=== PATIENT | female | born 1955 | race Caucasian/White ===

== ENCOUNTER 2017-05-09 10:34 | Emergency (ER) | payer BC ==
--- OUTSIDE RECORDS SUMMARY | 2017-05-09 11:45 | XMS REPORT ---
:1955 External Reference #:[id number] Author Organization [facility] Address [address], [address] [place] [address] Phone [phone] Care Team Providers Name Role Phone Juliana Jurado MD Care Team Information Form Coverer Unavailable Juliana Jurado MD Primary Care Physician Unavailable Payers Type Date Identification Numbers Payment Provider Subscriber Commercial Policy Number: [id number] [employer] HUMB[employer] Fay Lopezjackelyn PayID: [id number] [address] [address] [place] [address] Medigap Part B Effective: 2009 Policy Number: Kevin Nur [id number] Expires: 2014 PayID: [id number] [address] [address] [place] [address] Medigap Part B Effective: 1997 Policy Number: Kevin Nur [id number] Expires: 2009 Group Number: [id number] [address] [address] PayID: [id number] [place] [address] Problems Date Description Provider Status Onset: 10/27/2010 Single major depressive episode Loren Freedman M.D. Active Onset: 10/27/2010 Palpitations Loren Freedman M.D. Active Onset: 10/27/2010 Benign essential hypertension Loren Freedman M.D. Active Onset: 10/27/2010 Hyperlipidemia Loren Freedman M.D. 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 Onset: 12/28/2016 Spasm Juliana Jurado MD Active Family History Date Family Member(s) Problem(s) Comments Father due to Lung Cancer () Mother due to Bone Cancer () First Daughter Fibrocystic breast disease Social History Type Date Description Comments Lives With Lives With Son Pets None 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 Working [employer] Hobbies [employer] Cigarette Use Never Smoked Cigarettes ETOH Use Consumes 1 glass of wine per day Recreational Drug Use Denies Drug Use Smoking Patient has never smoked Daily Caffeine Patient consumes minimal amounts of caffeine Allergies, Adverse Reactions, Alerts Date Description Reaction Status Severity Comments 05/07/2009 NKDA active Medications Medication Date Status Form Strength Qnty SIG Indications Ordering Provider Potassium 12/28/ Active Tablets ER 10Meq 120ta 4 tab by Juliana Ortiz Theresa 2016 bs mouth MARIETTA Jurado every morning Furosemide 05/28/ Active Tablets 20mg 90tab 1 by mouth I10 2016 s in in the adonay Jurado MD Omeprazole 06/19/ Active Capsules DR 40mg 90cap 1 by mouth 2015 s every day MD Adrien Vitamin B 06/19/ Active Tablets 1 by mouth Catalina Soni 2015 every day Regis Calvillo Escitalopram 10/27/ Active Tablets 20mg 90tab 1 by mouth F41.9 Juliana Oxalate 2010 s every day MD Adrien Tribenzor / Active Tablets 40-10-25m 90tab 1 by mouth I10 0000 g s every day amador Jurado 1 Metoprolol / Active Tablets ER 100mg 90tab take 1 I10 Juliana Succinate ER 0000 24HR s tablets by german Jurado once daily mdd 1 Simvastatin / Active Tablets 40mg 90tab 1 by mouth E78.5 0000 s every Adrien, night amador UPTON 1 Terazosin HCL 03/05/ Hx Capsules 5mg 90cap 1 by mouth 2017 - s every day Adrien 04/19/ Didn't 2017 Call In Yet Fluticasone 02/02/ Hx Suspension 50mcg/Act 9.900 1 spray to J06.9 Catalina Propionate 2017 - ml each mag Calvillo M.D. 02/12/ every day 2016 Mucinex 02/02/ Hx Tablets ER 600mg 30tab 1 tab by Park9 Catalina 2016 - 12HR s german Calvillo M.D. 02/12/ twice a 2016 day Cefdinir 02/02/ Hx Capsules 300mg 20cap 1 tab by Catalina 2017 - s german Calvillo M.D. 02/14/ twice a 2016 day Terazosin HCL 01/20/ Hx Capsules 2mg 30cap 1 Tab At Juliana 2017 - s Bedtime Adiren 03/05/ 2017 Potassium 06/21/ Hx Tablets ER 20Meq 60tab 1 tab by Juliana Cardenas 2016 - s mouth Adrien, ER 12/28/ 2x/day 2016 Amoxicillin/Cl 03/27/ Hx Tablets 875-125mg 14tab take 1 J01.10 Catalina avulanate 2016 - s tablet by Regis Calvillo Potassium 04/03/ mouth 2016 every 12 hours for 7 days for sinus infection Buspirone HCL 05/19/ Hx Tablets 5mg 90tab take 1-2 F41.9 Loren 2015 - s tablet 2-3 Kasia, 11/26/ times M.D. 2015 daily for anxiety as needed Naprosyn 10/01/ Hx Tablets 500mg 180ta one twice M25.559 Loren 2014 - bs a day with Kasia 12/28/ food Only M.D. 2016 as needed for pain:3-4X/ Mo Omeprazole 01/23/ Hx Capsules DR 40mg 90cap 1 by mouth Loren 2013 - s bid Kasia 06/19/ M.D. 2016 Naproxen Kit 10/23/ Hx Tablets 500mg 180ta 1 by mouth Kasia 2013 - bs twice a Loren, 10/01/ day as 2014 needed with food Alendronate / Hx 70mg Unknown Sodium - 2014 Amlodipine / Hx 5-10mg Unknown Besy-Benazepri 0000 - l HCL 2014 Lexapro / Hx 10mg Unknown - 2014 Thiamine HCL 00/00/ Hx Tablets 100mg 1 PO qd Freedman, 0000 - Loren, 2015 Vitamin B-12 0000/ Hx Tablets 100mcg 90tab 1 po qd Unknown 0000 - s 2016 Fexofenadine 00/00/ Hx Tablets 180mg 1 po qd Freedman, HCL 0000 - Loren, 2014 Omeprazole / Hx Capsules DR 20mg 90cap 1 by mouth Juliana 0000 - s every at Adrien, 12/28/ bedtime 2016 Immunizations CPT Code Status Date Vaccine Lot # [id number] Given 11/27/2015 Influenza Vaccine (Fluzone) Age 3 And Older [id number] Given 11/27/2014 Influenza Vaccine (Fluzone) Age 3 And Older [id number] Given 11/14/2013 Tdap injection 47657 Given 11/14/2013 Pneumococcal Conjugate Vaccine 13 Valent For Intramuscular Use 77183 Given 11/14/2013 flu vaccination 18274 Given 11/02/2012 flu vaccination 34044 Given 06/05/2012 Zoster Vaccine Live Injection 07421 Given 11/02/2011 flu vaccination 39351 Given 10/27/2010 flu vaccination 86637 Given 11/04/2009 flu vaccination 24871 Given 02/18/2009 H1N1 Immuniation Adminstration 55008 Given 12/25/2008 flu vaccination 77377 Given 01/06/2005 flu vaccination 07859 Given 09/19/2003 Tetnus Injection 13066 Given 12/25/2002 flu vaccination 61186 Given 01/02/2002 flu vaccination 32349 Given 01/13/2001 flu vaccination 79938 Given 12/18/1999 Influenza Virus Whole 46144 Given 12/28/1995 Influenza Virus Vaccine 62578 Given 11/19/1994 Influenza Virus Vaccine 53088 Given 12/09/1992 Influenza Virus Vaccine 91924 Given 12/01/1991 Influenza Virus Vaccine Vital Signs Date Vital Result Comment 04/19/2017 BP Systolic 129 mmHg BP Diastolic 74 mmHg BP Systolic Sitting Left Arm 124 mmHg BP Diastolic Sitting Left Arm 82 mmHg Body Temperature 97.2 F Heart Rate 67 /min Weight 167.00 lb O2 % BldC Oximetry 96 % 03/05/2017 BP Systolic 152 mmHg BP Diastolic 102 mmHg Heart Rate 78 /min Weight 161.00 lb O2 % BldC Oximetry 97 % 02/02/2017 BP Systolic 132 mmHg BP Diastolic 88 mmHg Body Temperature 97.6 F Heart Rate 69 /min Height 63 inches 5'3" Weight 163.38 lb BMI (Body Mass Index) 28.9 kg/m2 BSA (Body Surface Area) 1.77 m2 [place] body weight in kilograms 52 O2 % BldC Oximetry 96 % 01/20/2017 BP Systolic Sitting Right Arm 160 mmHg BP Diastolic Sitting Right Arm 90 mmHg Heart Rate 67 /min Height 63 inches 5'3" Weight 163.00 lb BMI (Body Mass Index) 28.9 kg/m2 BSA (Body Surface Area) 1.77 m2 [place] body weight in kilograms 52 O2 % BldC Oximetry 96 % 12/28/2016 BP Systolic Sitting Right Arm 162 mmHg BP Diastolic Sitting Right Arm 100 mmHg Heart Rate 67 /min Height 63 inches 5'3" Weight 164.00 lb BMI (Body Mass Index) 29.0 kg/m2 BSA (Body Surface Area) 1.78 m2 [place] body weight in kilograms 52 06/29/2016 BP Systolic 138 mmHg BP Diastolic 80 mmHg BP Systolic Sitting Left Arm 136 mmHg BP Diastolic Sitting Left Arm 80 mmHg BP Systolic Sitting Resting Right Arm 136 mmHg BP Diastolic Sitting Resting Right Arm 79 mmHg Body Temperature 97.4 F Heart Rate 64 /min Height 63 inches 5'3" Weight 167.00 lb BMI (Body Mass Index) 29.6 kg/m2 BSA (Body Surface Area) 1.79 m2 [place] body weight in kilograms 52 05/28/2016 BP Systolic 155 mmHg BP Diastolic 81 mmHg BP Systolic Sitting Left Arm 142 mmHg BP Diastolic Sitting Left Arm 90 mmHg Body Temperature 97.2 F Heart Rate 64 /min Respiratory Rate 16 /min Height 63 inches 5'3" Weight 171.00 lb BMI (Body Mass Index) 30.3 kg/m2 BSA (Body Surface Area) 1.81 m2 [place] body weight in kilograms 52 03/27/2016 BP Systolic Sitting Left Arm 132 mmHg BP Diastolic Sitting Left Arm 84 mmHg Body Temperature 97.1 F Heart Rate 68 /min Respiratory Rate 20 /min Height 66 inches 5'6" Weight 169.25 lb BMI (Body Mass Index) 27.3 kg/m2 BSA (Body Surface Area) 1.86 m2 11/27/2015 BP Systolic 137 mmHg BP Diastolic 88 mmHg BP Systolic Sitting Left Arm 142 mmHg BP Diastolic Sitting Left Arm 80 mmHg Heart Rate 64 /min Respiratory Rate 16 /min Height 66 inches 5'6" Weight 173.00 lb BMI (Body Mass Index) 27.9 kg/m2 BSA (Body Surface Area) 1.88 m2 [place] body weight in kilograms 59 06/20/2015 BP Systolic 122 mmHg BP Diastolic 84 mmHg Body Temperature 97.1 F Heart Rate 59 /min Respiratory Rate 16 /min Height 65 inches 5'5" Weight 171.00 lb BMI (Body Mass Index) 28.5 kg/m2 BSA (Body Surface Area) 1.85 m2 O2 % BldC Oximetry 98 % 05/20/2015 BP Systolic Sitting Left Arm 128 mmHg BP Diastolic Sitting Left Arm 76 mmHg Heart Rate 60 /min Respiratory Rate 19 /min Height 65 inches 5'5" Weight 172.00 lb BMI (Body Mass Index) 28.6 kg/m2 BSA (Body Surface Area) 1.86 m2 11/27/2014 BP Systolic Sitting Left Arm 118 mmHg BP Diastolic Sitting Left Arm 66 mmHg Heart Rate 62 /min Respiratory Rate 19 /min Height 65 inches 5'5" Weight 171.00 lb BMI (Body Mass Index) 28.5 kg/m2 BSA (Body Surface Area) 1.85 m2 Last Menstrual Period [id number] Menopause 10/01/2014 BP Systolic Sitting Left Arm 122 mmHg BP Diastolic Sitting Left Arm 70 mmHg Body Temperature 98.6 F Heart Rate 59 /min Respiratory Rate 19 /min Height 65 inches 5'5" Weight 171.00 lb BMI (Body Mass Index) 28.5 kg/m2 BSA (Body Surface Area) 1.85 m2 05/28/2014 BP Systolic Sitting Left Arm 124 mmHg BP Diastolic Sitting Left Arm 72 mmHg Heart Rate 68 /min Respiratory Rate 18 /min Height 66 inches 5'6" Weight 170.00 lb BMI (Body Mass Index) 27.4 kg/m2 BSA (Body Surface Area) 1.87 m2 04/10/2014 BP Systolic 118 mmHg BP Diastolic 76 mmHg Body Temperature 97.9 F Heart Rate 72 /min Respiratory Rate 18 /min Height 66 inches 5'6" Weight 176.00 lb 01/23/2014 BP Systolic 122 mmHg BP Diastolic 72 mmHg Heart Rate 78 /min Respiratory Rate 18 /min Height 66 inches 5'6" Weight 177.00 lb 11/14/2013 BP Systolic 122 mmHg BP Diastolic 80 mmHg Heart Rate 76 /min Respiratory Rate 18 /min Height 66 inches 5'6" Weight 177.00 lb 09/22/2013 BP Systolic 126 mmHg BP Diastolic 68 mmHg Heart Rate 64 /min Height 66 inches 5'6" Weight 175.00 lb 05/15/2013 BP Systolic 122 mmHg BP Diastolic 74 mmHg Heart Rate 62 /min Height 66 inches 5'6" Weight 181.00 lb 05/01/2013 BP Systolic 118 mmHg BP Diastolic 72 mmHg Body Temperature 98.6 F Height 66 inches 5'6" Weight 179.00 lb 04/21/2013 BP Systolic 120 mmHg BP Diastolic 72 mmHg Body Temperature 99.1 F Heart Rate 80 /min Height 66 inches 5'6" Weight 184.00 lb 12/28/2012 BP Systolic 116 mmHg BP Diastolic 78 mmHg Heart Rate 68 /min Height 66 inches 5'6" Weight 187.00 lb 11/02/2012 BP Systolic 120 mmHg BP Diastolic 78 mmHg Heart Rate 68 /min Height 66 inches 5'6" Weight 186.00 lb 08/29/2012 BP Systolic 124 mmHg BP Diastolic 62 mmHg Body Temperature 98.9 F Heart Rate 60 /min Height 66 inches 5'6" Weight 181.00 lb 05/02/2012 BP Systolic 128 mmHg BP Diastolic 66 mmHg Heart Rate 72 /min Height 66 inches 5'6" Weight 176.00 lb 03/22/2012 BP Systolic 122 mmHg BP Diastolic 66 mmHg Heart Rate 64 /min Height 66 inches 5'6" Weight 182.00 lb 11/02/2011 BP Systolic 124 mmHg BP Diastolic 66 mmHg Heart Rate 62 /min Height 66 inches 5'6" Weight 176.00 lb 08/26/2011 BP Systolic 138 mmHg BP Diastolic 68 mmHg Heart Rate 60 /min Height 66 inches 5'6" Weight 172.00 lb 04/23/2011 BP Systolic 124 mmHg BP Diastolic 78 mmHg Heart Rate 62 /min Height 66 inches 5'6" Weight 175.00 lb 02/24/2011 BP Systolic 124 mmHg BP Diastolic 68 mmHg Heart Rate 64 /min Height 65 inches 5'5" Weight 177.00 lb 02/12/2011 BP Systolic 132 mmHg BP Diastolic 78 mmHg Heart Rate 76 /min Height 66 inches 5'6" Weight 177.00 lb 02/05/2011 BP Systolic 150 mmHg BP Diastolic 100 mmHg 02/05/2011 BP Systolic 146 mmHg BP Diastolic 100 mmHg Heart Rate 60 /min Height 66 inches 5'6" Weight 180.00 lb 02/03/2011 BP Systolic 138 mmHg BP Diastolic 90 mmHg Heart Rate 68 /min Height 65 inches 5'5" Weight 180.00 lb 12/25/2010 BP Systolic 118 mmHg BP Diastolic 86 mmHg Heart Rate 76 /min Height 65 inches 5'5" Weight 181.00 lb 11/05/2010 BP Systolic 104 mmHg BP Diastolic 74 mmHg Heart Rate 64 /min Height 65 inches 5'5" Weight 184.00 lb 10/27/2010 BP Systolic 128 mmHg BP Diastolic 72 mmHg Heart Rate 62 /min Height 65 inches 5'5" Weight 182.00 lb 01/30/2009 Height 65 inches 5'5" Weight 185.00 lb BMI (Body Mass Index) 30.8 kg/m2 Results Test Date Test Result H/L Range Note Basic Metabolic Panel 03/05/2017 Glucose 96 mg/dL 74-106 1 BUN 10 mg/dL 7-18 1 Creatinine 0.7 mg/dL 0.6-1.3 1 Glom Filtration Rate, Estimate >60 mL/min >60 1 If >60 mL/min >60 1, 2 BUN/Creat 14.2 ratio 1 Sodium 137 mmol/L 136-145 1 Potassium 3.4 mmol/L Low 3.5-5.1 1 Chloride 102 mmol/L 98-107 1 Carbon Dioxide 30 mmol/L 21-32 1 Anion Gap 5 mEq/L Low 8-16 1 Calcium 9.0 mg/dL 8.5-10.1 1 Basic Metabolic Panel 06/29/2016 Glucose 94 mg/dL 74-106 1 BUN 21 mg/dL High 7-18 1 Creatinine 0.9 mg/dL 0.6-1.3 1 Glom Filtration Rate, Estimate >60 mL/min >60 1 If >60 mL/min >60 1, 3 BUN/Creat 23.3 ratio 1 Sodium 137 mmol/L 136-145 1 Potassium 3.4 mmol/L Low 3.5-5.1 1 Chloride 98 mmol/L 98-107 1 Carbon Dioxide 29 mmol/L 21-32 1 Anion Gap 10 mEq/L 8-16 1 Calcium 9.6 mg/dL 8.5-10.1 1 LDL Cholesterol Profile 06/02/2016 Cholesterol 206 mg/dL High <200 4, 5 Triglycerides 123 mg/dL <150 4, 6 HDL Cholesterol 73 mg/dL >40 4, 7 LDL-Cholesterol 108 mg/dL < 100 4, 8 Comprehensive Metabolic Panel 06/02/2016 Glucose 100 mg/dL 74-106 4 BUN 14 mg/dL 7-18 4 Creatinine 1.1 mg/dL 0.6-1.3 4 Glom Filtration Rate, Estimate 53 mL/min >60 4 If >60 mL/min >60 4, 9 BUN/Creat 12.7 ratio 4 Sodium 133 mmol/L Low 136-145 4 Potassium 3.1 mmol/L Low 3.5-5.1 4 Chloride 95 mmol/L Low 98-107 4 Carbon Dioxide 29 mmol/L 21-32 4 Anion Gap 9 mEq/L 8-16 4 Calcium 9.0 mg/dL 8.5-10.1 4 Total Protein 8.0 g/dL 6.4-8.2 4 Albumin 4.2 g/dL 3.4-5.0 4 Globulin 3.8 g/dL 1.9-4.3 4 Alb/Glob 1.1 ratio 4 Bilirubin,Total 0.7 mg/dL 0.2-1.0 4 Sgot/Ast 22 U/L 15-37 4 SGPT/Alt 30 U/L 12-78 4 Alkaline Phosphatase 81 U/L 45-117 4 CBS W/Automated Diff 06/02/2016 White Blood Count 5.5 K/uL 3.1-10.7 4 Red Blood Count 4.31 M/uL 3.90-5.40 4 Hemoglobin 14.2 gm/dL 11.6-15.8 4 Hematocrit 41.6 % 36.0-46.1 4 Mean Cell Volume 96.5 fl 80.9-99.0 4 Mean Corpuscular HGB 32.9 pg High 25.9-32.7 4 Mean Corpuscular HGB Conc 34.1 g/dL 30.8-34.3 4 Platelet Count 327 K/uL 150-400 4 Red Cell Distri Width SD 40.9 fl 3-47 4 Red Cell Distri Width %CV 12.0 % 11.7-14.4 4 Mean Platelet Volume 10.5 fL 8.9-12.4 4 Neut% 56.9 % 40.4-72.8 4 Lymph % 26.4 % 20.0-42.0 4 [place] % 13.0 % 4.3-13.2 4 Eo% 2.6 % 0.0-6.6 4 Bas% 1.1 % 0.0-1.1 4 Neut# 3.10 K/uL 1.8-7.0 4 Lymph # 1.44 K/uL 1.0-4.0 4 [place] # 0.71 K/uL 0.3-0.9 4 Eos # 0.14 K/uL 0.0-0.5 4 Baso # 0.06 K/uL 0.0-0.1 4 Hepatitis C Antibody 06/02/2016 Hepatitis C Antibody Nonreactive Nonreactive 4 Signal/Cutoff ratio < 0.02 <0.80 4, 10 Basic Metabolic Panel 05/23/2015 Glucose 99 mg/dL 74-106 BUN 25 mg/dL High 7-18 Creatinine 1.4 mg/dL High 0.6-1.3 Glom Filtration Rate, Estimate 41 mL/min >60 If 49 mL/min >60 11 BUN/Creat 17.8 ratio Sodium 127 mmol/L Low 136-145 Potassium 3.9 mmol/L 3.5-5.1 Chloride 92 mmol/L Low 98-107 Carbon Dioxide 26 mmol/L 21-32 Anion Gap 9 mEq/L 8-16 Calcium 8.3 mg/dL Low 8.5-10.1 LDL Cholesterol Profile 05/23/2015 Cholesterol 163 mg/dL 150-200 12 Triglycerides 197 mg/dL High 50-150 13 HDL Cholesterol 71 mg/dL 60-150 14 LDL-Cholesterol 53 mg/dL Low 75-100 15 Liver Function Tests 05/23/2015 Total Protein 7.5 g/dL 6.4-8.2 Albumin 4.0 g/dL 3.4-5.0 Globulin 3.5 g/dL 1.9-4.3 Alb/Glob 1.1 ratio Bilirubin,Total 0.5 mg/dL 0.2-1.0 Bilirubin,Direct 0.2 mg/dL 0.0-0.2 Bilirubin,Indirect 0.3 mg/dL 0.0-0.9 Sgot/Ast 23 U/L 15-37 SGPT/Alt 29 U/L 12-78 Alkaline Phosphatase 89 U/L 45-117 Laboratory test finding 05/23/2015 Thyroid Stim Hormone 1.41 uIU/mL 0.36- 3.74 LDL Cholesterol Profile 05/28/2014 Cholesterol 174 mg/dL 150-200 16 Triglycerides 170 mg/dL High 50-150 17 HDL Cholesterol 80 mg/dL 60-150 18 LDL-Cholesterol 60 mg/dL Low 75-100 19 Liver Function Tests 05/28/2014 Total Protein 7.3 g/dL 6.4-8.2 Albumin 4.2 g/dL 3.4-5.0 Globulin 3.1 g/dL 1.9-4.3 Alb/Glob 1.4 ratio Bilirubin,Total 0.5 mg/dL 0.2-1.0 Bilirubin,Direct 0.1 mg/dL 0.0-0.2 Bilirubin,Indirect 0.4 mg/dL 0.0-0.9 Sgot/Ast 24 U/L 15-37 SGPT/Alt 28 U/L 12-78 Alkaline Phosphatase 110 U/L 45-117 Basic Metabolic Panel 05/28/2014 Glucose 105 mg/dL 74-106 BUN 18 mg/dL 7-18 Creatinine 1.4 mg/dL High 0.6-1.3 Glom Filtration Rate, Estimate 41 mL/min >60 If 49 mL/min >60 20 BUN/Creat 12.8 ratio Sodium 135 mmol/L Low 136-145 Potassium 3.7 mmol/L 3.5-5.1 Chloride 100 mmol/L 98-107 Carbon Dioxide 26 mmol/L 21-32 Anion Gap 9 mEq/L 8-16 Calcium 8.4 mg/dL Low 8.5-10.1 Laboratory test finding 05/28/2014 Thyroid Stim Hormone 1.71 uIU/mL 0.36- 3.74 CBC/Manual Differential 05/28/2014 White Blood Count 5.8 K/uL 3.1-10.7 Red Blood Count 3.74 M/uL Low 3.90-5.40 Hemoglobin 12.8 gm/dL 11.6-15.8 Hematocrit 38.1 % 36.0-46.1 Mean Cell Volume 101.9 fl High 80.9-99.0 Mean Corpuscular HGB 34.2 pg High 25.9-32.7 Mean Corpuscular HGB Conc 33.6 g/dL 30.8-34.3 Platelet Count 283 K/uL 155-360 Red Cell Distri Width %CV 12.3 % 11.7-14.4 Mean Platelet Volume 10.8 fL 8.9-12.4 Total Cells Counted 100 #CELLS Neutrophils% 76 % High 33-73 Lymph% 15 % Low 17-56 Platelet Estimate NORMAL Atypical Lymph% 2 % 0-7 Monocyte% 4 % 0-10 Eosinophil% 2 % 0-5 Basophil% 1 % 0-2 Anisocytosis 0-1+ Macrocytosis 2+ Laboratory test finding 11/14/2013 Fit Hemocult positive Laboratory test finding 11/14/2013 Cytology Pap See Note 21 Laboratory test finding 05/15/2013 Thyroid Stim Hormone 2.34 uIU/mL 0.49- 4.67 Basic Metabolic Panel 05/15/2013 Anion Gap 15 mEq/L 8-16 BUN 22 mg/dL 5-23 BUN/Creat 22.0 ratio Calcium 9.4 mg/dL 8.5-10.1 Carbon Dioxide 26 mEq/L 18-29 Chloride 100 mmol/L 98-107 Creatinine 1.0 mg/dL 0.5-1.4 Glom Filtration Rate, Estimate 60 mL/min >60 Glucose 92 mg/dL 76-115 If >60 mL/min >60 22 Potassium 3.9 mmol/L 3.5-5.1 Sodium 137 mmol/L 136-145 LDL Cholesterol Profile 05/15/2013 Cholesterol 195 mg/dL 120-200 HDL Cholesterol 70 mg/dL 29-83 LDL-Cholesterol 77 mg/dL 62-185 Triglycerides 241 mg/dL High 16-231 Liver Function Tests 05/15/2013 Alb/Glob 1.5 ratio Albumin 4.5 g/dL 3.5-5.0 Alkaline Phosphatase 99 U/L 50-136 Bilirubin,Direct 0.2 mg/dL 0.1-0.4 Bilirubin,Indirect 0.3 mg/dL 0.0-0.9 Bilirubin,Total 0.5 mg/dL 0.2-1.2 Globulin 3.0 g/dL 1.9-4.3 SGPT/Alt 32 U/L 30-65 Sgot/Ast 23 U/L 16-40 Total Protein 7.5 g/dL 6.3-8.0 Laboratory test finding 11/02/2012 Fit Hemocult negative Urine Culture And 10/24/2012 Urine Culture (See Note) 23 Sensitivities Laboratory test finding 05/02/2012 TSH (Thyroid 2.98 miu/mL 0.34-5.60 Stimulating Horm) Basic Metabolic Panel 05/02/2012 Anion Gap 12.0 mmol/L High 2-11 BUN/Creatinine Ratio 17.5 8-20 Blood Urea Nitrogen 14 mg/dL 6-24 Calcium 10.1 mg/dL High 8.1-9.9 Chloride 100 mmol/L Low 101-111 Co2 Carbon Dioxide 26.0 mmol/L 22-32 Creatinine 0.80 mg/dL 0.50-1.40 Egfr 94.7 >60 24 Egfr Non- 73.7 >60 Glucose 102 mg/dL High 70-100 Potassium 3.6 mmol/L 3.5-5.0 Sodium 138 mmol/L 133-145 Lipid Profile (Trig/Chol/HDL) 05/02/2012 Cholesterol 212 mg/dL High Less than 200 Cholesterol/HDL Ratio 2.8 Average 1-4.44 HDL Cholesterol 75 mg/dL High 40-60 25 LDL Cholesterol 109.4 mg/dL High Less Than 100 26 Triglycerides 138 mg/dL 40-200 Liver Function Panel 05/02/2012 Albumin 4.7 g/dL 3.6-5.4 Albumin/Globulin Ratio 1.8 1-3 Alkaline Phosphatase 75 U/L 30-110 Alt 24 U/L 14-54 Ast 23 U/L 12-42 Direct Bilirubin 0.1 mg/dL 0.1-0.5 Globulin 2.6 g/dL 2-4 Indirect Bilirubin 1.0 mg/dL 0.3-1.0 Total Bilirubin 1.1 mg/dL 0.4-1.5 Total Protein 7.3 g/dL 6.2-8.1 Laboratory test finding 10/01/2011 Esophageal Biopsy See Note 27 Liver Function Panel 04/23/2011 Albumin 4.4 GM/DL 3.6-5.4 Albumin/Globulin Ratio 1.6 1-3 Alkaline Phosphatase 84 U/L 30-110 Alt (SGPT) 25 U/L 14-54 Ast (Sgot) 27 U/L 12-42 Bilirubin Direct 0.1 mg/dL 0.1-0.5 Bilirubin Total 0.7 mg/dL 0.4-1.5 28 Globulin 2.8 GM/DL 2-4 Indirect Bilirubin 0.6 mg/dL 0.3-1.0 29 Total Protein 7.2 GM/DL 6.2-8.1 Lipid Profile (Trig/Chol/HDL) 04/23/2011 Cholesterol 196 mg/dL Less Than 200 30 Cholesterol/HDL Ratio 2.55 AVERAGE 1-4.44 High Density Lipoprotein 77 mg/dL High 40-60 31 Low Density Lipoprotein 74 mg/dL Less Than 100 32 Triglyceride 224 mg/dL High 40-200 Basic Metabolic Panel 04/23/2011 Anion Gap 8.0 mmol/L 2-11 33 BUN 12 mg/dL 6-24 BUN/Creatinine Ratio 17.1 8-20 Calcium 9.7 mg/dL 8.1-9.9 Chloride 102 mmol/L 101-111 Co2 (Carbon Dioxide) 28.0 mmol/L 22-32 Creatinine 0.7 mg/dL 0.50-1.40 Glucose 95 mg/dL 70-100 One Over Creatinine 1.42 Potassium 3.6 mmol/L 3.5-5.0 Sodium 138 mmol/L 135-145 eGFR 110.9 > 60 34 eGFR Non- 86.2 > 60 Laboratory test finding 11/05/2010 Surgical Pathology See Note 35 Basic Metabolic Panel 10/28/2010 Anion Gap 10.0 mmol/L 2-11 36 BUN 19 mg/dL 6-24 BUN/Creatinine Ratio 15.8 8-20 Calcium 9.5 mg/dL 8.1-9.9 Chloride 98 mmol/L Low 101-111 Co2 (Carbon Dioxide) 28.0 mmol/L 22-32 Creatinine 1.2 mg/dL 0.50-1.40 Glucose 95 mg/dL 70-100 One Over Creatinine 0.83 Potassium 3.6 mmol/L 3.5-5.0 Sodium 136 mmol/L 135-145 eGFR 59.5 > 60 37 eGFR Non- 46.3 > 60 Lipid Profile (Trig/Chol/HDL) 10/28/2010 Cholesterol 194 mg/dL Less Than 200 38 Cholesterol/HDL Ratio 3.08 AVERAGE 1-4.44 High Density Lipoprotein 63 mg/dL High 40-60 39 Low Density Lipoprotein 83 mg/dL Less Than 100 40 Triglyceride 239 mg/dL High 40-200 Liver Function Panel 10/28/2010 Albumin 4.3 GM/DL 3.6-5.4 Albumin/Globulin Ratio 2.2 1-3 Alkaline Phosphatase 75 U/L 30-110 Alt (SGPT) 28 U/L 14-54 Ast (Sgot) 30 U/L 12-42 Bilirubin Direct 0.1 mg/dL 0.1-0.5 Bilirubin Total 1.0 mg/dL 0.4-1.5 41 Globulin 2.0 GM/DL 2-4 Indirect Bilirubin 0.9 mg/dL 0.3-1.0 42 Total Protein 6.3 GM/DL 6.2-8.1 Laboratory test finding 10/28/2010 Cytology Pap See Note 43 Laboratory test finding 05/14/2010 Polyp Colon And/Or Rectum See Note 44 Basic Metabolic Panel 07/10/2009 Glucose 104 mg/dL 76-115 BUN 14 mg/dL 5-23 Creatinine 0.7 mg/dL 0.5-1.4 Glom Filtration Rate, Estimate >60 mL/min >60 If >60 mL/min >60 45 BUN/Creat 20.0 Sodium 136 mEq/L 136-145 Potassium 3.8 mEq/L 3.5-5.1 Chloride 103 mEq/L 98-107 Carbon Dioxide 25 mEq/L 21-32 Anion Gap 12 mEq/L 8-16 Calcium 8.9 mg/dL 8.5-10.1 CBC 07/10/2009 White Blood Count 6.3 K/uL 3.1-10.7 Red Blood Count 4.15 M/uL 3.90-5.40 Hemoglobin 13.9 gm/dL 11.6-15.8 Hematocrit 41.1 % 36.0-46.1 Mean Cell Volume 99.0 fl 80.9-99.0 Mean Corpuscular HGB 33.5 pg High 25.9-32.7 Mean Corpuscular HGB Conc 33.8 g/dL 30.8-34.3 Platelet Count 272 K/uL 155-360 Red Cell Distri Width %CV 12.6 % 11.7-14.4 Mean Platelet Volume 10.7 fL 8.9-12.4 Protime 07/10/2009 Protime 12.4 seconds 11.7-15.1 Inr 0.9 0.8-1.2 46 Laboratory test finding 07/10/2009 Act Partial Thrombo 27.2 seconds 23.4- 37.4 47 Time Urine Screen 07/10/2009 Urine Color YELLOW Yellow Urine Clarity CLEAR Clear Urine Glucose - Dipstick NEGATIVE mg/dL Negative Urine Bilirubin - Dipstick NEGATIVE Negative Urine Ketone NEGATIVE mg/dL Negative Urine Specific [place] 1.010 1.010-1.030 Urine Blood NEGATIVE Negative Urine PH 5.5 Low 6.5-7.5 Urine Protein - Dipstick NEGATIVE mg/dL Negative Urine Urobilinogen - Dipstick 0.2 E.U./dL 0.2-1.0 Urine Nitrite - Dipstick NEGATIVE Negative Urine Leuk Esterase NEGATIVE Negative 1 I10 2 Note: Persistent reduction for 3 months or more in an eGFR <60 mL/min/1.73 m2 defines CKD. Patients with eGFR values >/=60 mL/min/1.73 m2 may also have CKD if evidence of persistent proteinuria is present. The original MDRD equation for estimated GFR is not valid for patients less than 18 years of age. Additional information may be found at [email or web address]. 3 Note: Persistent reduction for 3 months or more in an eGFR <60 mL/min/1.73 m2 defines CKD. Patients with eGFR values >/=60 mL/min/1.73 m2 may also have CKD if evidence of persistent proteinuria is present. The original MDRD equation for estimated GFR is not valid for patients less than 18 years of age. Additional information may be found at www.kdoqi.org. 4 E78.5 N18.9 I10 Z11.59 5 Reference Guidelines*: Desirable: ........... < 200 mg/dL Borderline High: ..... 200-239 mg/dL High: ................ >=240 mg/dL * The National Cholesterol Education Program (NCEP) 6 Reference Guidelines*: Normal: ............. < 150 mg/dL Borderline High: .... 150-199 mg/dL High: ............... 200-499 mg/dL Very High: .......... > 500 mg/dL * Source: National Cholesterol Education Program (NCEP) 7 Reference Guidelines*: Low HDL: ..... < 40 mg/dL Normal: ..... 40-60 mg/dL Desirable: ... > 60 mg/dL *The National Cholesterol Education Program(NCEP) 8 Reference Guidelines*: Optimal:........... <100 mg/dL Near Optimal....... 100-129 mg/dL Borderline High.... 130-159 mg/dL High............... 160-189 mg/dL Very High.......... >=190 mg/dL * Source: National Cholesterol Education Program (NCEP) 9 Note: Persistent reduction for 3 months or more in an eGFR <60 mL/min/1.73 m2 defines CKD. Patients with eGFR values >/=60 mL/min/1.73 m2 may also have CKD if evidence of persistent proteinuria is present. The original MDRD equation for estimated GFR is not valid for patients less than 18 years of age. Additional information may be found at www.kdoqi.org. 10 Antibodies to HCV not detected; does not exclude early acute HCV infection. 11 Note: Persistent reduction for 3 months or more in an eGFR <60 mL/min/1.73 m2 defines CKD. Patients with eGFR values >/=60 mL/min/1.73 m2 may also have CKD if evidence of persistent proteinuria is present. The original MDRD equation for estimated GFR is not valid for patients less than 18 years of age. Additional information may be found at www.kdoqi.org. 12 Reference Guidelines*: Desirable: ........... < 200 mg/dL Borderline High: ..... 200-239 mg/dL High: ................ >=240 mg/dL * The National Cholesterol Education Program (NCEP) 13 Reference Guidelines*: Normal: ............. < 150 mg/dL Borderline High: .... 150-199 mg/dL High: ............... 200-499 mg/dL Very High: .......... > 500 mg/dL * Source: National Cholesterol Education Program (NCEP) 14 Reference Guidelines*: Low HDL: ..... < 40 mg/dL Normal: ..... 40-60 mg/dL Desirable: ... > 60 mg/dL *The National Cholesterol Education Program(NCEP) 15 Reference Guidelines*: Optimal:........... <100 mg/dL Near Optimal....... 100-129 mg/dL Borderline High.... 130-159 mg/dL High............... 160-189 mg/dL Very High.......... >=190 mg/dL * Source: National Cholesterol Education Program (NCEP) 16 Reference Guidelines*: Desirable: ........... < 200 mg/dL Borderline High: ..... 200-239 mg/dL High: ................ >=240 mg/dL * The National Cholesterol Education Program (NCEP) 17 Reference Guidelines*: Normal: ............. < 150 mg/dL Borderline High: .... 150-199 mg/dL High: ............... 200-499 mg/dL Very High: .......... > 500 mg/dL * Source: National Cholesterol Education Program (NCEP) 18 Reference Guidelines*: Low HDL: ..... < 40 mg/dL Normal: ..... 40-60 mg/dL Desirable: ... > 60 mg/dL *The National Cholesterol Education Program(NCEP) 19 Reference Guidelines*: Optimal:........... <100 mg/dL Near Optimal....... 100-129 mg/dL Borderline High.... 130-159 mg/dL High............... 160-189 mg/dL Very High.......... >=190 mg/dL * Source: National Cholesterol Education Program (NCEP) 20 Note: Persistent reduction for 3 months or more in an eGFR <60 mL/min/1.73 m2 defines CKD. Patients with eGFR values >/=60 mL/min/1.73 m2 may also have CKD if evidence of persistent proteinuria is present. The original MDRD equation for estimated GFR is not valid for patients less than 18 years of age. Additional information may be found at www.kdoqi.org. 21 [facility] [address] [place] [address], [address] [place] [address] CYTOLOGY REPORT Name: Fay Nur : 1955 (Age: 58) Sex: F Location: [facility] Med Rec. # [id number] Date Collected: 11/14/2013 Billing #: [id number] Date Received: 11/15/2013 Requisition # [id number] Physician(s): LOREN FREEDMAN MD Source of Specimen: CERVICAL THIN PREP Clinical Information: Date of Last Menstrual Period: 1999 Interpretation: NEGATIVE FOR INTRAEPITHELIAL LESION OR MALIGNANCY. Specimen Adequacy: SATISFACTORY FOR EVALUATION. Additional Findings: ENDOCERVICAL/TRANSFORMATION ZONE PRESENT. dcl Electronic Signature ADITHYA Klein (ASCP) Reported: 11/17/2013 [facility] ICD-9 Code(s) V72.31 22 Note: Persistent reduction for 3 months or more in an eGFR <60 mL/min/ 1.73 m2 defines CKD. Patients with eGFR values >/=60 mL/min/1.73 m2 may also have CKD if evidence of persistent proteinuria is present. The original MDRD equation for estimated GFR is not valid for patients less than 18 years of age. Additional information may be found at www.kdoqi.org. 23 RUN DATE: 10/26/12 [facility] LAB LIVE PAGE 1 RUN TIME: [id number] [place] [id number] Specimen Inquiry ----- Name: FAY NUR : [address]: Elmer Irene MD Acct: [id number] Unit: [id number] AGE: 57 Location: [facility] Re10/24/12 SEX: F Status: DEP ER ----- SPEC: [id number] DOROTHEA: 10/24/12-[address] [facility] [address]: Elmer Irene MD REQ: [id number] RECD: 10/24/12 STATUS: SILVO[facility] DR: Loren Freedman MD _ SOURCE: URINE SPDESC: ORDERED: Urine Culture ----- Procedure Result Verified Site ----- Urine Culture Final 10/26/12-850 ML Organism 1 KLEBSIELLA PNEUMONIAE [place] Count 10-25,000 (Moderate) CFU/ML 1. KLEBSIELLA PNEUMONIAE M.I.C. RX --------- ------ Ampicillin >=32 R Cefazolin <=4 S Cefepime <=1 S Ceftriaxone <=1 S Ciprofloxacin <=0.25 S Gentamicin <=1 S Imipenem <=0.25 S Levofloxacin 1 S Meropenem <=0.25 S Nitrofurantoin 128 R Tetracycline >=16 R Pipercillin/Tazobactam 16 S Trimethoprim/ Sulfamethoxazole <=20 S Amoxicillin/Clavulanic Acid 4 S Aztreonam <=1 S Contact the Microbiology Department for any additional antibiotic reporting. ----- END OF REPORT * ML=Testing performed at Main Lab DEPARTMENT OF PATHOLOGY, [address] [place] [address] Milton Fry M.D. Director [facility] Permit # [id number] 24 Because ethnic data is not always readily available, this report includes an eGFR for both -Americans and non- Americans. The National Kidney Disease Education Program (NKDEP) does not endorse the use of the MDRD equation for patients that are not between the ages of 18 and 70, are , have extremes of body size, muscle mass, or nutritional status, or are non- or non-. According to the National Kidney Foundation, irrespective of diagnosis, the stage of the disease is based on the level of kidney function: Stage Description GFR(mL/min/1.73 m(2)) 1 Kidney damage with normal or decreased GFR 90 2 Kidney damage with mild decrease in GFR 60- 89 3 Moderate decrease in GFR 30-59 4 Severe decrease in GFR 15-29 5 Kidney failure <15 (or dialysis) 25 HDL Interpretation: Undesirable: High Risk: Less than 40 MG/DL Desirable: Low Risk: Greater than 60 MG/DL 26 LDL Interpretation: Low Risk Optimal Level: LDL Less than 100 MG/DL Near or Above Optimal: LDL 100-129 MG/DL Borderline High Risk: LDL 130-159 MG/DL High Risk : LDL 160-189 MG/DL Very High Risk: LDL Greater than 189 MG/DL 27 OPERATION/PROCEDURE EGD DIAGNOSIS: PART 1: "GASTRIC BIOPSY": REACTIVE GASTROPATHY, DIFFERENTIAL DIAGNOSIS INCLUDES ALKALINE REFLUX, NSAID INJURY AND EARLY PEPTIC INJURY. NO HELICOBACTER SEEN WITH SPECIAL STAIN. PART 2: "ESOPHAGUS BIOPSY": SQUAMOUS MUCOSAL CHANGES SUPPORTIVE OF CHRONIC ESOPHAGITIS. NO GLANDULAR MUCOSA NOTED. NO EOSINOPHIL EXOCYTOSIS OBSERVED. RITA/zach GROSS Part 1; "GASTRIC BIOPSY". The specimen is received in an appropriately labeled container. This contains two rounded padron colored pieces of soft tissue measuring up to 0.3 cm.; filtered and submitted in toto within a single cassette. Part 2; "ESOPHAGUS BIOPSY". The specimen is received in an appropriately labeled container. This contains three rounded pink colored pieces of soft tissue measuring up to 0.3 cm.; filtered and submitted in toto within a single cassette. DARREN/zach MICROSCOPIC Part 1: Sections show glandular elongation, tortuosity, and hypercellularity of gastric pits, foveolar hyperplasia, and villiform transformation of the mucosa. The glands appear more angular than usual. Foveolar cells show mild mucin depletion and vacuolization. There is capillary congestion, vasodilatation and edema. Smooth muscle fibers extend high into the lamina propria. There are sparse amounts of chronic inflammatory cells. There are no Helicobacter-type bacteria identified with MICROSCOPIC (Continued) Warthin-Starry staining. The controls are adequate. Part 2: Sections show squamous epithelium characterized by acanthosis, parakeratosis, mildly ectatic, elongated rete papillary vessels, without significant inflammatory cell exocytosis. PRE OPERATIVE DIAGNOSIS GERD, dysphagia REVIEW CODE CODE: I ----- OSITO Thomas MD 10/02/11 1414 ----- 28 A metabolite of Naproxen, O-desmethylnaproxen, has been shown to interfere with the Jendrassik-[place] method for measuring total bilirubin. Samples from patients who have taken Naproxen have shown spurious elevation in total bilirubin levels. 29 Please note updated reference range, effective 09/05/09 30 CHOLESTEROL INTERPRETATION: Desirable: Less than 200 MG/DL Borderline-High Risk: 200-239 MG/DL High-Risk: 240 MG/DL and over 31 HDL INTERPRETATION: Undesirable: High Risk: Less than 40 MG/DL Desirable: Low Risk: Greater than 60 MG/DL 32 LDL INTERPRETATION: Low Risk Optimal Level: LDL Less than 100 MG/DL Near or Above Optimal: LDL 100-129 MG/DL Borderline High Risk: LDL 130-159 MG/DL High Risk : LDL 160-189 MG/DL Very High Risk: LDL Greater than 189 MG/DL 33 Anion gap measurement may be of limited value in the presence of any alkalosis, especially in a combined acid base disorder. . 34 Because ethnic data is not always readily available, this report includes an eGFR for both -Americans and non- Americans. The National Kidney Disease Education Program (NKDEP) does not endorse the use of the MDRD equation for patients that are not between the ages of 18 and 70, are , have extremes of body size, muscle mass, or nutritional status, or are non- or non-. According to the National Kidney Foundation, irrespective of diagnosis, the stage of the disease is based on the level of kidney function: Stage Description GFR(mL/min/1.73 m(2)) 1 Kidney damage with normal or decreased GFR 90 2 Kidney damage with mild decrease in GFR 60- 89 3 Moderate decrease in GFR 30-59 4 Severe decrease in GFR 15-29 5 Kidney failure <15 (or dialysis) 35 [facility] [address], [address] [place] [address] SURGICAL PATHOLOGY REPORT Name: Fay Nur Pathology #: [id number] : 1955 (Age: 55) Sex: F Location: [facility] Soc. Sec. #: [id number] Date of Procedure: 11/05/2010 Billing #: [id number] Date Received: 11/06/2010 Physician(s): LOREN FREEDMAN MD Specimen(s) Received: Forehead lesion Clinical Information: Forehead lesion, punch biopsy. Gross Description: Specimen received in formalin and labeled with the patient' s name is a padron-johnson punch biopsy measuring 0.6 excised to a depth of 0.3 cm. The skin surface is granular with the majority covered by a padron-johnson to white lesion. The specimen is bisected and entirely submitted. (1 block) jib /REY Diagnosis: BASAL CELL CARCINOMA, SCLEROSING TYPE, FOREHEAD. CARCINOMA IS PRESENT AT THE PERIPHERAL/DEEP MARGIN. BCC at margin. (Not Available) Reported: 2010 Electronic Signature rye Christiano Duke MD [facility] Technical Laboratory [facility] ICD-9 Codes: 173.9 36 Anion gap measurement may be of limited value in the presence of any alkalosis, especially in a combined acid base disorder. . 37 Because ethnic data is not always readily available, this report includes an eGFR for both -Americans and non- Americans. The National Kidney Disease Education Program (NKDEP) does not endorse the use of the MDRD equation for patients that are not between the ages of 18 and 70, are , have extremes of body size, muscle mass, or nutritional status, or are non- or non-. According to the National Kidney Foundation, irrespective of diagnosis, the stage of the disease is based on the level of kidney function: Stage Description GFR(mL/min/1.73 m(2)) 1 Kidney damage with normal or decreased GFR 90 2 Kidney damage with mild decrease in GFR 60- 89 3 Moderate decrease in GFR 30-59 4 Severe decrease in GFR 15-29 5 Kidney failure <15 (or dialysis) 38 CHOLESTEROL INTERPRETATION: Desirable: Less than 200 MG/DL Borderline-High Risk: 200-239 MG/DL High-Risk: 240 MG/DL and over 39 HDL INTERPRETATION: Undesirable: High Risk: Less than 40 MG/DL Desirable: Low Risk: Greater than 60 MG/DL 40 LDL INTERPRETATION: Low Risk Optimal Level: LDL Less than 100 MG/DL Near or Above Optimal: LDL 100-129 MG/DL Borderline High Risk: LDL 130-159 MG/DL High Risk : LDL 160-189 MG/DL Very High Risk: LDL Greater than 189 MG/DL 41 A metabolite of Naproxen, O-desmethylnaproxen, has been shown to interfere with the Jendrassik-Hailey method for measuring total bilirubin. Samples from patients who have taken Naproxen have shown spurious elevation in total bilirubin levels. 42 Please note updated reference range, effective 09/05/09 43 [facility] [address] [place] [address], [address] [place] [address] CYTOLOGY REPORT Name: Fay Nur : 1955 (Age: 55) Sex: F Location: [facility] Soc. Sec. #: [id number] Date Collected: 10/28/2010 Billing #: [id number] Date Received: 10/28/2010 Physician(s): LOREN FREEDMAN MD Source of Specimen: ENDOCERVICAL/ECTOCERVICAL THIN PREP Clinical Information: Date of Last Menstrual Period: None Provided Menstrual History: Post menopausal: 04/20 Specimen Adequacy: SATISFACTORY FOR EVALUATION. ADEQUATE ENDOCERVICAL/TRANSFORMATION ZONE. General Categorization: NEGATIVE FOR INTRAEPITHELIAL LESION OR MALIGNANCY. tfn Electronic Signature ADITHYA Hwang (ASCP) Reported: 10/31/2010 Also seen by:ADITHYA Hwang (ASCP) [facility] ICD-9 Code(s) V72.31 44 OPERATION/PROCEDURE Colonoscopy DIAGNOSIS: PART 1: "ASCENDING COLON POLYPECTOMY": HYPERPLASTIC POLYP. PART 2: "TRANSVERSE COLON POLYPECTOMY": ADENOMA, TUBULAR TYPE. WYS/clf GROSS Part 1; "ASCENDING COLON POLYP". The specimen is received in an appropriately labeled container. This contains three rounded padron colored pieces of soft tissue measuring up to 0.6 cm.; filtered and submitted in toto within a single cassette. Part 2; "TRANSVERSE COLON POLYP". The specimen is received in an appropriately labeled container. This contains four rounded padron colored pieces of soft tissue measuring up to 0.2 cm.; filtered and submitted in toto within a single cassette. WS/clf MICROSCOPIC Part 1: Sections show colonic mucosa lined by an increased number of goblet cells. The glands have a serrated, saw tooth appearance. The nuclei are bland, and basal. Part 2: Sections show colonic mucosa with tubular glands lined by columnar cells with elongated and hyperchromatic nuclei. PRE OPERATIVE DIAGNOSIS Screening colon REVIEW CODE CODE: I ----- OSITO Thomas MD 05/18/11 1309 ----- 45 Note: Persistent reduction for 3 months or more in an eGFR <60 mL/min/1.73 m2 defines CKD. Patients with eGFR values >/=60 mL/min/1.73 m2 may also have CKD if evidence of persistent proteinuria is present. The original MDRD equation for estimated GFR is not valid for patients less than 18 years of age. Additional information may be found at www.kdoqi.org. 46 THERAPEUTIC INR RANGE: 2.0 - 3.0 DVT, Pulmonary embolus, prophylaxis against venous thrombosis or systemic embolization in high risk patients. 2.5 - 3.5 Mechanical heart valves 47 IS PATIENT ON HEPARIN PROTOCOL ? N IS PATIENT ON ANTICOAGULANTS? UNKNOWN QUERY: Anticoagulant Therapy? QUERY: Date of Last Dose: QUERY: Time of Last Dose: Procedures Date CPT Code Description Status Comment 11/16/2015 Mammogram Completed 11/16/2015 Bone Mineral Density Test Completed 04/25/[address] Gaspar - 5 years 12/01/2013 72923 Mammography Unilateral Completed 11/18/11 11/05/2010 79534 Destruct-Skin Tags/Lesions-Local Completed Anesthesia - First Lesion 07/17/2009 51375 Arthroscopy w/meniscectomy Completed including meniscal shaving 05/28/2009 87034 EKG-Tracing And Report Completed 01/30/2009 28120 Radiology, Knee 3 Views Completed 02/03/1994 77045 Tympanometry Completed 08/28/1992 40324 Tympanometry Completed Encounters Type Date Location Provider CPT E/M Dx Office Visit 03/05/2017 4:00p [place] [address] I10 Office Visit 02/02/2017 10:00a Family Medicine GINO Hou 92970 J06.9 Office Visit 01/20/2017 3:15p [place] [address] I10 M62.838 D48.5 Office Visit 12/28/2016 10:15a [place] [address] I10 D48.5 M62.838 Office Visit 06/29/2016 4:00p [place] [address] I10 Office Visit 05/28/2016 3:30p [place] [address] I10 E78.5 F41.9 N18.9 D48.5 Office Visit 03/27/2016 10:30a Family Medicine Brigitte Marquis 64225 J01.10 CLAIMS ADJUSTER CROP-C Office Visit 11/27/2015 3:30p [place] [address] I10 E78.5 N18.9 Z23 Office Visit 06/20/2015 10:30a Family Medicine Catalina Calvillo M.D. 31702 M79.672 Office Visit 05/20/2015 3:30p Family Medicine Loren Freedman M.D. 03485 I10 E78.5 F41.9 Office Visit 11/27/2014 3:30p Family Medicine Loren Freedman M.D. 13781 Z00.00 I10 E78.5 Z23 Office Visit 10/01/2014 2:50p Family Medicine Loren Freedman M.D. 61938 381.01 719.45 Office Visit 05/28/2014 3:30p Family Medicine Loren Freedman M.D. 11397 401.1 272.4 300.00 Office Visit 11/27/2009 3:30p Orthopaedic Office Mayur Jose M.D. 14898 V67.09 Office Visit 10/30/2009 3:30p Orthopaedic Office Mayur Jose M.D. 98096 719.46 V67.09 Office Visit 05/10/2009 9:45a Orthopaedic Office Mayur Jose M.D. 43016 836.1 Office Visit 05/10/2009 9:45a Orthopaedic Office Mayur Jose M.D. 32939 836.1 Office Visit 01/30/2009 11:00a Orthopaedic Office Mayur Jose M.D. 81314 836.1 Plan of Care 04/19/2017 - Juliana Jurado MDI10 Essential (primary) hypertensionComments:TO DECREASE YOUR AM DIZZINESS, YOU CAN START TAKING THE METOPROLOL AT BEDTIME;OR, YOU CAN CUT THE FUROSEMIDE IN 1/2;GOAL FOR BP 110-120/70Follow up:6 MO: CPE
[2017-05-09 11:53] VITALS: BP 141/81
--- NOTE | 2017-05-09 12:03 | UC ---
Skin Complaint HPI - HPI Summary HPI Summary: Pt presents with rash to left side of neck first noticed about 10 days ago. She tells me that rash started as slight redness and mild burning and itch. Soon progressed to mild clear drainage and slight blister. Now are scabbed and itchy. Has applied neomycin, aloe, and menthol cream with no relief. Says she had the shingles vaccine a few years ago. Denies fever, chills, recent illness, headache, or dizziness. - History of Current Complaint Chief Complaint: UCSkin Time Seen by Provider: 05/09/17 12:02 Stated Complaint: SKIN COMPLAINT Hx Obtained From: Patient Onset/Duration: Gradual Onset Skin Exposure Onset/Duration: Days Ago Timing: Constant Onset Severity: Mild Current Severity: Mild Pain Intensity: 4 Pain Scale Used: 0-10 Numeric - Allergy/Home Medications Allergies/Adverse Reactions: Allergies Allergy/AdvReac Type Severity Reaction Status Date / Time No Known Allergies Allergy Verified 05/09/17 11:46 Review of Systems Constitutional: Negative Skin: Rash Eyes: Negative ENT: Negative Respiratory: Negative Cardiovascular: Negative Gastrointestinal: Negative Musculoskeletal: Negative Neurological: Negative Psychological: Negative All Other Systems Reviewed And Are Negative: Yes PMH/Surg Hx/FS Hx/Imm Hx Previously Healthy: Yes Endocrine History: Dyslipidemia Cardiovascular History: Hypertension GI/ History: Gastroesophageal Reflux Psychological History: Anxiety, Depression - Surgical History Surgical History: Yes Surgery Procedure, Year, and Place: . benign tumor ankle - Family History Known Family History: Positive: Hypertension - Social History Lives: With Family Alcohol Use: Occasionally Substance Use Type: None Smoking Status (MU): Never Smoked Tobacco Physical Exam Triage Information Reviewed: Yes Appearance: Well-Appearing, No Pain Distress, Well-Nourished Vital Signs: Initial Vital Signs Temp 98.1 F 05/09/17 11:48 Pulse 62 05/09/17 11:48 Resp 18 05/09/17 11:48 BP 141/81 05/09/17 11:48 Pulse Ox 99 05/09/17 11:48 Vital Signs Reviewed: Yes Eyes: Positive: Conjunctiva Clear, Other: - EOMI. No skin lesions surrounding eyes. Negative: Conjunctiva Inflamed, Discharge ENT: Positive: Hearing grossly normal, Pharynx normal, TMs normal, Uvula midline. Negative: Pharyngeal erythema, TM bulging, TM dull, TM red Neck: Positive: Supple, Nontender, No Lymphadenopathy Respiratory: Positive: Lungs clear, Normal breath sounds, No respiratory distress, No accessory muscle use Cardiovascular: Positive: RRR, No Murmur, Pulses Normal Neurological: Positive: Alert Psychological: Positive: Age Appropriate Behavior Skin: Positive: Other - Cluster of 2-3mm scabs on slight erythematous bases on anterior left neck under the chin that do not cross the midline. Mildly TTP. No bleeding, drainage, or streaking. Course/Dx - Course Course Of Treatment: Suspect shingles - well healed and now scabbed over. Benadryl and hydrocortisone cream for itch. Pain is well controlled currently, if she develops pain - advised to take tylenol prn. - Diagnoses Provider Diagnoses: Herpes zoster left neck Discharge - Sign-Out/Discharge Documenting (check all that apply): Discharge - Discharge Plan Condition: Stable Disposition: HOME Prescriptions: Hydrocortisone 1% Oint(NF) [Hydrocortisone 1% Oint (NF)] 1 applic TOPICAL BID # 1 tube Patient Education Materials: Shingles (ED) Referrals: Juliana Jurado MD [Primary Care Provider] - Additional Instructions: If you develop a fever, shortness of breath, chest pain, new or worsening symptoms - please call your PCP or go to the ED. Your blood pressure was high at todays visit. Please see your primary provider within 4 weeks for recheck and re-evaluation. - Billing Disposition and Condition Condition: STABLE Disposition: HOME
== END 2017-05-09 12:16 | disposition home or self-care (01) ==
LOC: UCCORT 10:34
DX: B02.9 Zoster without complications (principal)
CPT/HCPCS: 99202; G0463

== ENCOUNTER 2019-07-20 12:52 | Inpatient (IN) ==
[2019-07-20] MEDS ORDERED: ceFAZolin 2 GM PREMIX in ORs 2 GM/50 ML BAG ONE (13:15)
[2019-07-20] MEDS: Lactated Ringers 1000 ml BAG 1,000 ML IV SCH ×3 (13:36→19:31)
[2019-07-20] MEDS ORDERED: Bupivacaine 0.25% SDV 30 ML ONE (14:26)
[2019-07-20] MEDS ORDERED: Midazolam 5 mg/5 ml VIAL 1 mg/ml 5 ml VIAL (5 mg) ONE ×2 (15:00→16:02)
[2019-07-20] MEDS ORDERED: ROPIVACAINE 5 MG/ML 30 ML BTL (0.5%) ONE (15:09)
[2019-07-20] MEDS ORDERED: fentaNYL 100 mcg/2 ml 50 MCG/ML VIAL ONE (15:27)
[2019-07-20] MEDS ORDERED: Lactulose 30 ml UDC PO PRN (16:24)
[2019-07-20] MEDS ORDERED: Magnesium Hydroxide LIQ 30 ML UDC PO PRN (16:24)
[2019-07-20] MEDS ORDERED: diPHENhydraMINE 25 mg TAB PO PRN (16:24)
[2019-07-20] MEDS ORDERED: Ondansetron 4 mg VIAL 2 MG/ML 2 ml VIAL IV PRN (16:24)
[2019-07-20] MEDS ORDERED: diPHENhydraMINE IV 50 MG/ML 1 ml VIAL (BENADRYL) IV PRN (16:24)
[2019-07-20] MEDS ORDERED: Ondansetron ODT 4 mg TAB 4 MG TAB PO PRN (16:24)
[2019-07-20] MEDS ORDERED: fentaNYL 100 mcg/2 ml 50 MCG/ML VIAL IV PRN (16:57)
[2019-07-20] MEDS ORDERED: DiMENhydriNATE IV 50 mg/ml 1 ml VIAL IV PUSH PRN (16:57)
[2019-07-20] MEDS ORDERED: Dexamethasone IV 4 MG/ML VIAL 1 ml VIAL ONE (16:57)
[2019-07-20] MEDS ORDERED: Naloxone 0.4 mg VIAL 0.4 mg/ml 1 ml VIAL IV PRN (16:57)
[2019-07-20] MEDS ORDERED: Acetaminophen IV 1 GM/100ML 1,000 MG/100 ML VIAL IVPB ONE (16:57)
[2019-07-20] MEDS ORDERED: Ondansetron 4 mg VIAL 2 MG/ML 2 ml VIAL ONE (17:00)
[2019-07-20] MEDS ORDERED: Acetaminophen IV 1 GM/100ML 100 ML ONE (17:31)
[2019-07-20] MEDS ORDERED: HYDROmorphone 1 MG/1 ML SYRINGE ONE (18:30)
[2019-07-20] MEDS: HYDROmorphone 1 MG/1 ML SYRINGE IV PRN ×3 (18:31→18:44)
[2019-07-20] MEDS: Magnesium Hydroxide LIQ 30 ML UDC PO SCH (21:11)
[2019-07-20] MEDS: ceFAZolin 1 GM in Dextrose (*) 1 GM/50 ML BAG IVPB SCH (23:13)
[2019-07-20] MEDS: oxyCODONE/Acetamin 5/325 mg TAB PO PRN (23:13)
[2019-07-21] MEDS: Lactated Ringers 1000 ml BAG 1,000 ML IV SCH (04:50)
[2019-07-21 05:14] LABS: Hematocrit 32 % (35-47); Hemoglobin 11.1 g/dL (12.0-16.0); Mean Platelet Volume 7.9 fL (7.4-10.4); Platelet Count 231 10^3/uL (150-450)
[2019-07-21 05:29] LABS: BUN/Creatinine Ratio 13.9 (8-20); Calcium 8.7 mg/dL (8.6-10.3); EGFR African American 53.4 (>60); EGFR Non-African American 44.1 (>60); Potassium 4.1 mmol/L (3.5-5.0)
[2019-07-21] MEDS: ceFAZolin 1 GM in Dextrose (*) 1 GM/50 ML BAG IVPB SCH ×2 (07:10→15:17)
[2019-07-21] MEDS: Magnesium Hydroxide LIQ 30 ML UDC PO SCH ×2 (08:38→21:27)
[2019-07-21] MEDS: Potassium Chlor 10 meq TAB PO SCH (08:39)
[2019-07-21] MEDS: Vitamin THERAPEUTIC TAB PO SCH (08:39)
[2019-07-21] MEDS ORDERED: OLMESARTAN AMLODIPIN HCTHIAZID PO SCH ×2 (09:00)
[2019-07-21] MEDS: oxyCODONE/Acetamin 5/325 mg TAB PO PRN (21:26)
[2019-07-22 04:51] LABS: Hematocrit 30 % (35-47); Hemoglobin 10.3 g/dL (12.0-16.0); Mean Platelet Volume 7.9 fL (7.4-10.4); Platelet Count 188 10^3/uL (150-450)
[2019-07-22] MEDS: oxyCODONE/Acetamin 5/325 mg TAB PO PRN (05:58)
[2019-07-22 08:38] LABS: ABS Lymphocytes 0.4 10^3/ul (1.0-4.8); ABS Monocytes 0.7 10^3/ul (0-0.8); Eosinophil % 0.4 %; Hematocrit 28 % (35-47); Lymphocyte % 7.1 %; Mean Corpuscular HGB Conc 36 g/dL (31-36); Mean Corpuscular Hemoglobin 35 pg (27-31); Mean Corpuscular Volume 99 fL (80-97); Mean Platelet Volume 7.9 fL (7.4-10.4); Platelet Count 191 10^3/uL (150-450); Red Blood Count 2.84 10^6 /uL (3.70-4.87); Red Cell Distribution Width 13 % (10-15); White Blood Count 5.5 10^3/uL (3.5-10.8)
[2019-07-22] MEDS: Vitamin THERAPEUTIC TAB PO SCH (09:24)
[2019-07-22] MEDS: Potassium Chlor 10 meq TAB PO SCH (09:24)
[2019-07-22] MEDS: Magnesium Hydroxide LIQ 30 ML UDC PO SCH ×2 (09:33→20:59)
[2019-07-22 16:28] LABS: Urine Appearance Cloudy; Urine Bilirubin Negative (Negative); Urine Blood 1+ (Negative); Urine Color Yellow; Urine Glucose Negative (Negative); Urine Ketones Negative (Negative); Urine Nitrite Negative (Negative); Urine Protein Negative (Negative); Urine Specific Gravity 1.005 (1.010-1.030); Urine Urobilinogen Negative (Negative)
[2019-07-22 16:29] LABS: Urine Bacteria Absent (Absent); Urine Red Blood Cell Trace(0-2/hpf) (Absent); Urine Squamous Epithelial Cell Present (Absent); Urine White Blood Cell Trace(0-5/hpf) (Absent)
[2019-07-23 05:39] LABS: ABS Eosinophils 0.1 10^3/ul (0-0.6); ABS Lymphocytes 0.9 10^3/ul (1.0-4.8); ABS Monocytes 0.7 10^3/ul (0-0.8); Eosinophil % 2.6 %; Hematocrit 28 % (35-47); Hemoglobin 9.8 g/dL (12.0-16.0); Lymphocyte % 17.1 %; Mean Corpuscular HGB Conc 35 g/dL (31-36); Mean Corpuscular Hemoglobin 35 pg (27-31); Mean Corpuscular Volume 101 fL (80-97); Mean Platelet Volume 8.1 fL (7.4-10.4); Platelet Count 176 10^3/uL (150-450); Red Blood Count 2.77 10^6 /uL (3.70-4.87); Red Cell Distribution Width 13 % (10-15); White Blood Count 5.3 10^3/uL (3.5-10.8)
[2019-07-23] MEDS: Potassium Chlor 10 meq TAB PO SCH (08:27)
[2019-07-23] MEDS: Vitamin THERAPEUTIC TAB PO SCH (08:28)
[2019-07-23 13:57] VITALS: BP 111/70
== END 2019-07-23 15:50 | disposition home health service (06) | DRG 469 ==
LOC: OR 12:52 → SSU 12:52 → MED 07-22 11:36
PROVIDERS: ADMIT Orthopaedic Surgery Adult Reconstructive Orthopaedic Surgery; ATTEND Orthopaedic Surgery Adult Reconstructive Orthopaedic Surgery

== ENCOUNTER 2019-07-24 17:06 | Inpatient (IN) ==
[2019-07-24 18:31] LABS: ABS Basophils 0.1 10^3/ul (0-0.2); ABS Eosinophils 0.2 10^3/ul (0-0.6); ABS Lymphocytes 1.2 10^3/ul (1.0-4.8); ABS Monocytes 1.1 10^3/ul (0-0.8); Eosinophil % 1.9 %; Hematocrit 31 % (35-47); Hemoglobin 10.7 g/dL (12.0-16.0); Lymphocyte % 14.3 %; Mean Corpuscular HGB Conc 35 g/dL (31-36); Mean Corpuscular Hemoglobin 35 pg (27-31); Mean Corpuscular Volume 100 fL (80-97); Platelet Count 262 10^3/uL (150-450); Red Blood Count 3.05 10^6 /uL (3.70-4.87); Red Cell Distribution Width 13 % (10-15); White Blood Count 8.2 10^3/uL (3.5-10.8)
[2019-07-24 18:50] LABS: Albumin 3.3 g/dL (3.2-5.2); Albumin/Globulin Ratio 1.2 (1-3); BUN/Creatinine Ratio 18.8 (8-20); C Reactive Protein 68.74 mg/L (<8.01); Calcium 8.9 mg/dL (8.6-10.3); EGFR Non-African American 85.1 (>60); Globulin 2.7 g/dL (2-4); Potassium 3.5 mmol/L (3.5-5.0); Total Bilirubin 0.6 mg/dL (0.2-1.0)
[2019-07-24] MEDS ORDERED: Iohexol 350 (CONTRAST) 500 ML MDV IV ONE (19:06)
[2019-07-24] MEDS ORDERED: Enoxaparin 80 MG/0.8 ML SYR(*) SUBCUT ONE (19:56)
[2019-07-25] MEDS ORDERED: Enoxaparin 80 MG/0.8 ML SYR(*) SUBCUT SCH (09:00)
[2019-07-25] MEDS ORDERED: Fluticasone NASAL SPRAY 50MCG 16 gm SPRAY BTL INTRANASAL SCH (09:00)
[2019-07-25] MEDS ORDERED: Calcium/Vitamin D TAB 250/125 TAB PO SCH (09:00)
[2019-07-25] MEDS ORDERED: Potassium Chlor 10 meq TAB PO SCH (09:00)
[2019-07-25] MEDS ORDERED: Polyethylene Glycol 3350 17 GM PACKET PO PRN (12:14)
[2019-07-25 16:21] VITALS: BP 138/81
== END 2019-07-25 17:45 | disposition home or self-care (01) | DRG 176 ==
LOC: ED 17:06 → MEDTELE 21:03
PROVIDERS: ADMIT Internal Medicine; ATTEND Internal Medicine